=== PATIENT | female | born 1965 | race Caucasian/White ===

== ENCOUNTER → 2016-08-11 | Outpatient (CLI) | payer OTHER | LOC: RAD 08:20 | PROVIDERS: ATTEND Obstetrics & Gynecology | DX: Z12.31 Encounter for screening mammogram for malignant neoplasm of breast (principal) | CPT/HCPCS: 77067 ==

== ENCOUNTER 2017-08-11 12:35 | Day surgery (SDC) | payer OTHER ==
[~2017-08-11] VITALS: Ht 172.7 cm; Wt 86.2 kg
[2017-08-11] MEDS ORDERED: NS IV 1000 ML 3,000 ML ONE (13:10)
[2017-08-11] MEDS ORDERED: NS IV 1000 ML 1,000 ML IV SCH (13:30)
[2017-08-11 13:35] VITALS: BP 157/98
[2017-08-11 13:37] LABS: MEAN PLATELET VOLUME 8.9 FL (7.4-10.4); RED BLOOD COUNT 5.12 10^6/uL (4.35-5.85); RED CELL DISTRIBUTION WIDTH 20.5 % (10.0-14.5); WHITE BLOOD COUNT 8.6 10^3/uL (4.3-11.0)
--- NOTE | 2017-08-11 13:37 | Diagnostic Imaging Report ---
INDICATION: PAD,HTN,TOBACCO,CYANOSIS OF R GREAT TOE COMPARISON: None. FINDINGS: Single frontal view of the chest demonstrates normal heart size and pulmonary vascularity. The lungs are well aerated and clear. No large pleural effusion or pneumothorax is seen. The visualized osseous structures show no acute abnormalities. IMPRESSION: 1. No acute cardiopulmonary process. Dictated by: Dictated on workstation # [id number]
[2017-08-11 13:41] LABS: BILIRUBIN,URINE NEGATIVE (NEGATIVE); CLARITY,URINE CLEAR; COLOR,URINE YELLOW; GLUCOSE, URINE (UA) NEGATIVE (NEGATIVE); KETONES,URINE 1+ (NEGATIVE); LEUKOCYTE ESTERASE ,URINE 1+ (NEGATIVE); NITRITE,URINE NEGATIVE (NEGATIVE); PH,URINE 7 (5-9); PROTEIN,URINE 1+ (NEGATIVE); UROBILINOGEN,URINE NORMAL (NORMAL)
[2017-08-11] MEDS ORDERED: HEParin 1000 UNIT/ML (10ML VIAL) FOR BOLUS ONE (13:47)
[2017-08-11] MEDS ORDERED: LIDOCAINE 1% INJ 20 ML 20 ML VIAL ONE (13:47)
[2017-08-11] MEDS ORDERED: [UNRECOGNIZED DRUG - CODE] MC (13:49)
[2017-08-11] MEDS ORDERED: HYDR25TA4 PO (13:49)
[2017-08-11] MEDS ORDERED: NORE-53 PO (13:49)
[2017-08-11] MEDS ORDERED: AMLO5TAB4 PO (13:49)
[2017-08-11] MEDS ORDERED: OMEP20CA12 PO (13:49)
[2017-08-11] MEDS ORDERED: LORA-714 PO (13:49)
[2017-08-11] MEDS ORDERED: MIDAZOLAM 5 MG/5 ML (VERSED) VIAL ONE (13:51)
[2017-08-11] MEDS ORDERED: fentaNYL INJECTION 100 MCG/2 ML AMP ONE ×2 (13:51→15:10)
[2017-08-11 13:57] LABS: ALANINE AMINOTRANSFERASE 16 U/L (0-55); ALBUMIN 3.9 GM/DL (3.2-4.5); ALKALINE PHOSPHATASE 53 U/L (40-136); BILIRUBIN,TOTAL 0.4 MG/DL (0.1-1.0); BUN/CREATININE RATIO 13; CALCIUM 9.2 MG/DL (8.5-10.1); CARBON DIOXIDE 22 MMOL/L (21-32); CHLORIDE 103 MMOL/L (98-107); CHOLESTEROL 230 MG/DL (< 200); CREATININE SERUM 0.79 MG/DL (0.60-1.30); GFR ESTIMATED > 60; GLUCOSE 88 MG/DL (70-105); HDL CHOLESTEROL 52 MG/DL (40-60); POTASSIUM 3.1 MMOL/L (3.6-5.0); SODIUM 138 MMOL/L (135-145); TRIGLYCERIDES 163 MG/DL (<150); VLDL CHOLESTEROL 33 MG/DL (5-40)
[2017-08-11 13:58] LABS: PROTHROMBIN TIME PATIENT 12.8 SEC (12.2-14.7)
[2017-08-11 14:01] LABS: BACTERIA,URINE NEGATIVE /HPF; RBC,URINE RARE /HPF; SQUAMOUS EPITHELIAL CELL,UR 25-50 /HPF
[2017-08-11] MEDS ORDERED: NITRO DRIP 25000 MCG/D5W 250 ML IV ONE (14:29)
[2017-08-11] MEDS ORDERED: MIDAZOLAM 2 MG/2 ML (VERSED) VIAL ONE (14:37)
[2017-08-11] MEDS ORDERED: PATIENT MAY USE OWN MEDS, ALL PO SCH (15:45)
[2017-08-11] MEDS ORDERED: NITROGLYCERIN 0.4 MG/PATCH (NITRO-DUR) TD ONE (15:45)
--- NOTE | 2017-08-11 15:53 | Cardiac Cath Report ---
Cardiac Cath Report Physician (s)/Bible Reader (s) Physician SONIA AGUSTIN MD Pre-Procedure Diagnosis Pre-Procedure Diagnosis: Peripheral arterial disease Post-Procedure Note Procedure Start Date: August 11, 2017 Name of Procedure: Bilateral lower extremity runoff Balloon angioplasty to the posterior tibial artery Third order Findings/Procedure Note PROCEDURE NOTE: 'bianka is a 51 years old lady with history of tobaccoism, has been having significant pain in her lower extremity on the right side. Significant discomfort. She was scheduled for next week, call the office having significant active pain and cyanosis of her right toe, we decided to proceed with the procedure today. After explaining the procedure to the patient, all pros and cons were explained , all questions were answered. The patient signed the consent and then she was placed on the cardiac catheterization laboratory. The patient was placed on the cardiac catheterization laboratory. Groin was prepped SL fashion local anesthesia was used. Sheath placed in the left femoral artery. Runoff to the left lower extremity was done through the sheath then a pigtail catheter was advanced to the abdominal aorta and abdominal aortogram was done. Stork wire was advanced and exchanged into a straight catheter to the right common iliac artery and runoff to the right lower except he was done then the catheter was advanced to the popliteal artery and to sets of angiogram were done. Total occlusion of the posterior tibial artery was noted. Patient was given 6000 units of heparin and then command 18 was used and advanced to the distal tibial artery then over a mini catheter it was exchanged in 2 command 14, Reading 2.0120 balloon was used multiple inflation, the mini catheter was advanced again and angiogram showed no improvement. I pulled the mini catheter to the tibial peroneal trunk and evaluated the peroneal artery then advanced the command again after looping the wire up in the tibial peroneal trunk and advance it all the way to the foot the balloon was reintroduced again and went down to the foot multiple inflation were done then the wire was removed over a mini and angiogram was done again showing no improvement. At that time I decided to abort the procedure FINDINGS: 1. Abdominal aortogram and evaluation of the bifurcation showed atherosclerotic disease at the bifurcation and origin of the iliac artery none obstructive disease 2. Left lower extremity runoff done through the sheath showing slow flow down to the trifurcation. Below the trifurcation the artery were not well seen 3. Right lower extremity. Patient is symptomatic, total occlusion of the posterior tibial artery, balloon angioplasty at multiple segment as described above without improvement of the flow. The peroneal artery has moderate disease , the anterior tibial artery has mild disease. CONCLUSIONS: 1. Total occlusion of the right posterior tibial artery, balloon angioplasty done at multiple segment without improvement of the flow 2. Mild to moderate disease at the right peroneal and anterior tibial artery. Nonobstructive disease 3. Atherosclerotic disease at the abdominal aorta bifurcation level and the iliac arteries. DISCUSSION AND RECOMMENDATIONS: Patient failed attempt for intervention, maximizing medical therapy is recommended. She has small vessel disease that is not amendable to intervention at this point. Patient is still an active smoker, educated on smoking cessation Anesthesia Type: Conscious Sedation Estimated blood loss (mL): 15 ml Contrast Amount: 129 ml Total Radiation Dose: 189 mGy Post-Procedure Diagnosis Post-operative diagnosis: Claudication Peripheral arterial disease Hypertension Hyperlipidemia Tobaccoism SONIA AGUSTIN MD August 11, 2017 15:53
--- NOTE | 2017-08-11 15:55 | Cardiac Procedure Note-CS/ASA ---
Pre-Procedure Note Pre-Op Procedure Note H&P Reviewed The H&P was reviewed, patient examined and no changes noted. Date H&P Reviewed: August 11, 2017 Time H&P Reviewed: 13:50 Conscious Sedation Pre-Proced Time Reviewed: 13:50 ASA Class: 3 Airway Mallampati Classification: (ione appropriate class) I. II. III, IV Lungs Heart ASA score ASA 1: a normal healthy patient ASA 2: a patient with a mild systemic disease (mid diabetes, controlled hypertension, obesity x ASA 3: a patient with a severe systemic disease that limits activity (angina , COPD, prior Myocardial infarction) ASA 4: a patient with an incapacitating disease that is a constant threat to life (CHF, renal failure) ASA 5: a moribund patient not expected to survive 24 hrs. (ruptured aneurysm) ASA 6: a declared brain patient whose organs are being harvested. For emergent operations, add the letter E after the classification Grade 3 Sedation Plan: Analgesia, Amnesia, Plan communicated to team members, Discussed options with patient/fam, Discussed risks with patient/fam Note The patient is an appropriate candidate to undergo the planned procedure, sedation, and anesthesia. The patient immediately re-assessed prior to indication. SONIA AGUSTIN MD August 11, 2017 15:55
[2017-08-11] MEDS ORDERED: NITROGLYCERIN 2% OINT 1 GM UNIT DOSE PACKET ONE ×2 (15:59→21:05)
[2017-08-11 16:00] VITALS: BP 121/81
[2017-08-11 17:00] VITALS: BP 117/80
[2017-08-11] MEDS ORDERED: NITROGLYCERIN 0.4 MG/PATCH (NITRO-DUR) TD NR (17:30)
[2017-08-11] MEDS: PENTOXIFYLLINE 400 MG (TRENtal) TAB PO SCH (17:46)
[2017-08-11] MEDS: OMEGA 3 (FISH OIL) 1000 MG CAP PO SCH (17:46)
[2017-08-11] MEDS: NS IV 1000 ML 1,000 ML IV SCH (17:47)
[2017-08-11 18:00] VITALS: BP 122/85
[2017-08-11] MEDS ORDERED: ACETAMINOPHEN 500 MG TAB (TYLENOL) ONE (19:58)
[2017-08-11 20:00] VITALS: BP 134/81
[2017-08-11] MEDS: ACETAMINOPHEN 500 MG TAB (TYLENOL) PO PRN (20:08)
[2017-08-11] MEDS ORDERED: ATORVASTATIN 10 MG (LIPITOR) TABLET PO SCH (21:00)
[2017-08-11] MEDS ORDERED: ASPIRIN 325 MG (5 GR) TABLET ONE (21:03)
[2017-08-11] MEDS ORDERED: CLOPIDOGREL 300 MG (PLAVIX) TABLET PO ONE ×2 (21:05→21:15)
[2017-08-11] MEDS: NITROGLYCERIN 2% OINT 1 GM UNIT DOSE PACKET TOP SCH (21:11)
[2017-08-11] MEDS ORDERED: ASPIRIN 325 MG (5 GR) TABLET PO ONE (21:15)
[2017-08-12] VITALS: BP 121/71
[2017-08-12] MEDS: NS IV 1000 ML 1,000 ML IV SCH (01:57)
[2017-08-12] MEDS: ACETAMINOPHEN 500 MG TAB (TYLENOL) PO PRN (03:17)
[2017-08-12] MEDS: NITROGLYCERIN 2% OINT 1 GM UNIT DOSE PACKET TOP SCH (03:17)
[2017-08-12 04:00] VITALS: BP 107/72
[2017-08-12 04:40] LABS: HEMOGLOBIN 9.8 G/DL (11.5-16.0); MEAN PLATELET VOLUME 9.5 FL (7.4-10.4); RED BLOOD COUNT 4.55 10^6/uL (4.35-5.85); RED CELL DISTRIBUTION WIDTH 19.6 % (10.0-14.5); WHITE BLOOD COUNT 8.7 10^3/uL (4.3-11.0)
[2017-08-12 04:53] LABS: BUN/CREATININE RATIO 17; CALCIUM 8.7 MG/DL (8.5-10.1); CARBON DIOXIDE 20 MMOL/L (21-32); CHLORIDE 107 MMOL/L (98-107); CREATININE SERUM 0.78 MG/DL (0.60-1.30); GFR ESTIMATED > 60; GLUCOSE 88 MG/DL (70-105); POTASSIUM 3.3 MMOL/L (3.6-5.0); SODIUM 138 MMOL/L (135-145)
[2017-08-12] MEDS: PENTOXIFYLLINE 400 MG (TRENtal) TAB PO SCH (06:09)
[2017-08-12] MEDS: OMEGA 3 (FISH OIL) 1000 MG CAP PO SCH (06:09)
[2017-08-12] MEDS ORDERED: PANTOPRAZOLE 20 MG TABLET (PROTONIX) PO SCH (07:00)
--- NOTE | 2017-08-12 07:24 | Cardiology Progress Note ---
Subjective Date Seen by Provider: August 12, 2017 Time Seen by Provider: 07:21 Subjective/Events-last exam Patient reported some improvement in her symptoms, her foot still felt colder and had difficulty getting it warm but the pain is better. The color is slightly better. No active pain. Review of Systems General: No Chills, No Night Sweats, No Fatigue, No Malaise, No Appetite, No Other HEENT: No Head Aches, No Visual Changes, No Eye Pain, No Ear Pain, No Dysphasia , No Sinus Congestion, No Post Nasal Drip, No Sore Throat, No Other Pulmonary: No Dyspnea, No Cough, No Pleuritic Chest Pain, No Other Cardiovascular: No: Chest Pain, Palpitations, Orthopnea, Paroxysmal Noc. Dyspnea, Edema, Lt Headedness, Other Gastrointestinal: No: Nausea, Vomiting, Abdominal Pain, Diarrhea, Constipation , Melena, Hematochezia, Other Objective-Cardiology Exam Last Set of Vital Signs Vital Signs 08/12/17 04:00 Temp 97.7 Pulse 74 Resp 17 B/P (MAP) 107/72 (84) Pulse Ox 96 O2 Delivery Room Air Capillary Refill : Less Than 3 Seconds I&O Intake and Output 08/12/17 00:00 Intake Total 600 ml Balance 600 ml Intake Oral 600 ml # Voids 1 General: Alert, Oriented X3, Cooperative HEENT: Atraumatic, PERRLA Neck: Supple, No JVD, No Thyromegaly Lungs: Clear to Auscultation, Normal Air Movement Heart: Regular Rate, Normal S1, Normal S2, No Murmurs Abdomen: Normal Bowel Sounds, Soft, No Tenderness, No Hepatosplenomegaly, No Masses Extremities: No Clubbing, No Cyanosis, No Edema, No Tenderness/Swelling, Other (Diminished pulse) Skin: No Rashes, No Breakdown, No Significant Lesion Neuro: Normal Gait, Normal Speech, Strength at 5/5 X4 Ext, Normal Tone, Sensation Intact Psych/Mental Status: Mental Status NL, Mood NL Results Lab Laboratory Tests 08/11/17 13:29 08/12/17 03:50 A/P-Cardiology Admission Diagnosis Claudication Peripheral arterial disease Hyperlipidemia Tobaccoism Assessment/Plan Claudication, significant pain, small vessel disease at the foot on the right lower extremity, total occlusion of the posterior tibial artery distally small artery, attempt for balloon angioplasty without success. We will continue to maximize medical therapy, educated on smoking cessation. Consideration for pedal access or attempt to improve the flow at the anterior tibial artery. I will discharge home today and monitor as an outpatient 1. Total occlusion of the right posterior tibial artery, balloon angioplasty done at multiple segment without improvement of the flow 2. Mild to moderate disease at the right peroneal and anterior tibial artery. Nonobstructive disease 3. Atherosclerotic disease at the abdominal aorta bifurcation level and the iliac arteries. Hyperlipidemia, started on statin, monitor lipids Tobaccoism, educated and instructed on smoking cessation, had a long discussion about the importance of smoking cessation. SONIA AGUSTIN MD August 12, 2017 07:24
[2017-08-12] MEDS ORDERED: CLOP75TA28 PO (07:27)
[2017-08-12] MEDS ORDERED: NITR1PAT5 TD (07:27)
[2017-08-12] MEDS ORDERED: PENT400T9 PO (07:27)
[2017-08-12] MEDS ORDERED: OMG1KC PO (07:27)
[2017-08-12] MEDS ORDERED: ASPI-983 PO (07:27)
[2017-08-12] MEDS ORDERED: ATOR10TA66 PO (07:27)
--- NOTE | 2017-08-12 07:28 | Discharge Inst-Post CATH ---
Discharge Inst-CATH Post Cardiac Cath D/C Inst Follow Up/Plan Appointment with Dr. Paz's office in 2-4 weeks CARDIAC CATH DISCHARGE INSTRUCTIONS *Hold Metformin for 48 hours post heart cath. ACTIVITY * Go Home directly and rest. * Limit activity of the leg (or wrist if it was used) for 7 days including aerobics, swimming, jogging, bicycling, etc. * Restrict stair-climbing for 7 days if possible, if not, climb up with your non -cath leg, then bring together on the same step. * Avoid lifting, pushing, pulling or excessive movement of the affected extremity for 7 days. * Customary sexual activity may be resumed after 2 days-use caution not to use a position that strains or causes pain to the affected extremity. * No driving for 24 hours. * NO SMOKING. * Avoid straining for bowel movements for 7 days. * Gentle walking on level ground is allowed. * Returning to work will depend on the type of procedure and the results. Your doctor will discuss this with you. CALL YOUR DOCTOR FOR ANY OF THE FOLLOWING: *If bleeding from the puncture site occurs- Apply gentle pressure to site with clean cloth and call your doctor or EMS. * If a knot or lump forms under the skin, increases in size, or causes pain. * If bruising appears to be worsening or moving further down your leg instead of disappearing. * Temperature above 101 F. CARE OF YOUR GROIN INCISION; * Bruising or purple discoloration of the skin near the puncture site is common. * You may shower only, no bathtub bathing for 5 days. Be careful to avoid slipping as your leg may feel stiff. * If a closure device was used on your femoral artery, please see the attached guide regarding care of the device and your leg. * REMOVE the dressing from your groin the next day after your procedure in the shower. CARE OF YOUR WRIST INCISION; * Bruising or purple discoloration of the skin near the puncture site is common. * You may shower. * DO NOT submerge wrist. * Remove dressing in 24 hours. SONIA PAZ MD August 12, 2017 07:28
[2017-08-12 08:01] VITALS: BP 132/94
[2017-08-12] MEDS ORDERED: OMEPRAZOLE 20 MG (PriLOSEC) CAP NON-FORMULARY PO SCH (09:00)
[2017-08-12] MEDS ORDERED: amLODIPine 5 MG (NORVASC) TAB PO SCH (09:00)
[2017-08-12] MEDS ORDERED: ASPIRIN E.C. 81 MG (ECOTRIN) TAB PO SCH (09:00)
[2017-08-12] MEDS ORDERED: NON-FORMULARY MEDICATION 1 EA EA (Amlodipine Besylate (Norvasc) 5 MG) PO SCH (09:00)
[2017-08-12] MEDS ORDERED: CLOPIDOGREL 75 MG (PLAVIX) TABLET PO SCH (09:00)
== END 2017-08-12 08:36 | disposition home or self-care (01) ==
LOC: CATH 12:35 → ICU 16:55 → CATH 08-12 08:36
PROVIDERS: ATTEND Internal Medicine Cardiovascular Disease
DX: I70.211 Atherosclerosis of native arteries of extremities with intermittent claudication, right leg (principal); I70.92 Chronic total occlusion of artery of the extremities; I70.0 Atherosclerosis of aorta; I73.00 Raynaud's syndrome without gangrene; I10 Essential (primary) hypertension; E78.5 Hyperlipidemia, unspecified; D64.9 Anemia, unspecified; F17.210 Nicotine dependence, cigarettes, uncomplicated; Z79.899 Other long term (current) drug therapy
CPT/HCPCS: 36140; 36415; 71045; 80048; 80053; 80061; 81000; 85027; 85610; 85730; 87081

== ENCOUNTER → 2017-09-02 | Outpatient (CLI) | payer OTHER ==
[~2017-09-02] MED LIST: AMLO5TAB4 PO; ASPI-983 PO; ATOR10TA66 PO; CLOP75TA28 PO; HYDR25TA4 PO; LORA-714 PO; NITR1PAT5 TD; NORE-53 PO; OMEP20CA12 PO; OMG1KC PO; PENT400T9 PO; [UNRECOGNIZED DRUG - CODE] MC
--- NOTE | 2017-09-03 14:02 | Diagnostic Imaging Report ---
EXAM: Digital mammogram bilateral screening with 3D tomosynthesis. The current study was also evaluated with a Computer Aided Detection (CAD) system. COMPARISON: This study was compared to the prior exam of study of 08/11/2016 and 02/22/2015. Currently, there are no complaints. FINDINGS: There are scattered fibroglandular densities in both breasts which could obscure a Lesion. Overall, there does not appear to have been any significant change when compared to the prior exam. No primary or secondary sign of malignancy is noted. IMPRESSION: There is no radiographic evidence for malignancy. ACR BI-RADS Category 1: Negative. Result letter will be mailed to the patient. Note: At least 10% of breast cancer is not imaged by mammography. Dictated by: Dictated on workstation # [id number]
== END ==
LOC: RAD 15:25
PROVIDERS: ATTEND Obstetrics & Gynecology
DX: Z12.31 Encounter for screening mammogram for malignant neoplasm of breast (principal)
CPT/HCPCS: 77067

== ENCOUNTER → 2018-06-23 | Outpatient (CLI) | payer OTHER ==
[~2018-06-23] MED LIST changes: +SUMA100P MC; -[UNRECOGNIZED DRUG - CODE] MC
== END ==
LOC: CARD 09:47
PROVIDERS: ATTEND Internal Medicine Cardiovascular Disease
DX: I10 Essential (primary) hypertension (principal); I73.00 Raynaud's syndrome without gangrene; Z72.0 Tobacco use
CPT/HCPCS: 93306

== ENCOUNTER → 2018-10-06 | Outpatient (CLI) | payer OTHER ==
--- NOTE | 2018-10-06 09:58 | Diagnostic Imaging Report ---
INDICATION: Routine screening. COMPARISON: 09/02/2017 and 08/11/2016. TECHNIQUE: 2D and 3D bilateral screening mammography was performed with CAD. FINDINGS: Scattered fibroglandular densities are identified bilaterally. The parenchymal pattern is stable. No mass or malignant appearing microcalcifications are seen. The axillae are unremarkable. IMPRESSION: No mammographic features suspicious for malignancy are identified. ACR BI-RADS Category 1: Negative. Result letter will be mailed to the patient. Note: At least 10% of breast cancer is not imaged by mammography. Dictated by: Dictated on workstation # [id number]
== END ==
LOC: RAD 07:22
PROVIDERS: ATTEND Obstetrics & Gynecology
DX: Z12.31 Encounter for screening mammogram for malignant neoplasm of breast (principal)
CPT/HCPCS: 77067

== ENCOUNTER → 2019-01-30 | Outpatient (CLI) | payer OTHER ==
[~2019-01-30] MED LIST changes: -OMEP20CA12 PO; +OMEP20CA13 PO; -PENT400T9 PO; +PNT400TCR PO
[2019-01-30 07:17] LABS: ALANINE AMINOTRANSFERASE 16 U/L (0-55); ALBUMIN 3.9 GM/DL (3.2-4.5); ALKALINE PHOSPHATASE 62 U/L (40-136); BILIRUBIN,TOTAL 0.3 MG/DL (0.1-1.0); BUN/CREATININE RATIO 11; CALCIUM 9.1 MG/DL (8.5-10.1); CARBON DIOXIDE 22 MMOL/L (21-32); CHLORIDE 107 MMOL/L (98-107); CHOLESTEROL 175 MG/DL (< 200); CREATININE SERUM 0.84 MG/DL (0.60-1.30); GFR ESTIMATED > 60; GLUCOSE 96 MG/DL (70-105); HDL CHOLESTEROL 41 MG/DL (40-60); POTASSIUM 3.6 MMOL/L (3.6-5.0); SODIUM 141 MMOL/L (135-145); TOTAL PROTEIN 6.6 GM/DL (6.4-8.2); TRIGLYCERIDES 143 MG/DL (<150); VLDL CHOLESTEROL 29 MG/DL (5-40)
== END ==
LOC: LAB 06:50
PROVIDERS: ATTEND Internal Medicine Cardiovascular Disease
DX: I73.00 Raynaud's syndrome without gangrene (principal); I10 Essential (primary) hypertension; Z72.0 Tobacco use
CPT/HCPCS: 36415; 80053; 80061

== ENCOUNTER → 2020-05-09 | Outpatient (CLI) | payer OTHER ==
[~2020-05-09] MED LIST changes: +ASPI-1238 PO; -ASPI-983 PO; +LORA-53 PO; -LORA-714 PO; -NITR1PAT5 TD; +NITR1PAT81 TD; -OMEP20CA13 PO; +OMEP20CA18 PO
[2020-05-09 08:04] LABS: ALANINE AMINOTRANSFERASE 9 U/L (0-55); ALBUMIN 3.9 GM/DL (3.2-4.5); ALKALINE PHOSPHATASE 72 U/L (40-136); BILIRUBIN,TOTAL 0.2 MG/DL (0.1-1.0); BUN/CREATININE RATIO 10; CALCIUM 9.3 MG/DL (8.5-10.1); CARBON DIOXIDE 23 MMOL/L (21-32); CHLORIDE 106 MMOL/L (98-107); CHOLESTEROL 169 MG/DL (< 200); CREATININE SERUM 0.82 MG/DL (0.60-1.30); GFR ESTIMATED > 60; GLUCOSE 93 MG/DL (70-105); HDL CHOLESTEROL 41 MG/DL (40-60); POTASSIUM 3.5 MMOL/L (3.6-5.0); SODIUM 140 MMOL/L (135-145); TOTAL PROTEIN 6.5 GM/DL (6.4-8.2); TRIGLYCERIDES 134 MG/DL (<150); VLDL CHOLESTEROL 27 MG/DL (5-40)
== END ==
LOC: LAB 07:21
PROVIDERS: ATTEND Physician Assistant
DX: E78.2 Mixed hyperlipidemia (principal); Z20.822 Contact with and (suspected) exposure to COVID-19
CPT/HCPCS: 36415; 80053; 80061; 86769

== ENCOUNTER → 2021-01-31 | Outpatient (CLI) | payer OTHER ==
[2021-01-31 08:12] LABS: ALBUMIN 4.1 GM/DL (3.2-4.5); BILIRUBIN,TOTAL 0.3 MG/DL (0.1-1.0); CALCIUM 9.2 MG/DL (8.5-10.1); CREATININE SERUM 0.82 MG/DL (0.60-1.30); POTASSIUM 4.1 MMOL/L (3.6-5.0); TOTAL PROTEIN 6.9 GM/DL (6.4-8.2)
== END ==
LOC: LAB
PROVIDERS: ATTEND Physician Assistant
DX: E78.2 Mixed hyperlipidemia (principal)
CPT/HCPCS: 36415; 80053; 80061

== ENCOUNTER 2022-04-24 09:35 | Outpatient (CLI) | payer OTHER ==
[~2022-04-24] VITALS: Ht 172.7 cm; Wt 87.1 kg
[~2022-04-24 09:35] MED LIST changes: +LORA-1389 PO; -LORA-53 PO
[2022-04-24] MEDS ORDERED: LISI5TAB20 PO (14:29)
== END 2022-04-24 14:31 | disposition home or self-care (01) ==
LOC: PREOP 09:35
PROVIDERS: ATTEND Surgery
DX: Z01.818 Encounter for other preprocedural examination (principal)

== ENCOUNTER 2022-04-29 06:42 | Day surgery (SDC) | payer BC, OTHER ==
[~2022-04-29] VITALS: Ht 172.7 cm; Wt 87.1 kg
[~2022-04-29 06:42] MED LIST changes: +LISI5TAB20 PO
[2022-04-29] MEDS ORDERED: LACTATED RINGERS 1,000 ML IV STA (07:05)
[2022-04-29 07:10] VITALS: BP 131/81
[2022-04-29] MEDS ORDERED: HURRICAINE EXT TUBE (BENZOCAINE) XX PRN (07:15)
[2022-04-29] MEDS ORDERED: PROPOFOL INJECTION 50 ML IV ONE (07:51)
--- NOTE | 2022-04-29 08:21 | Progress Note-Pre Operative ---
Pre-Operative Progress Note Date of Available H&P: Apr 22, 2022 Date H&P Reviewed: Apr 29, 2022 Time H&P Reviewed: 08:12 History & Physical: H&P Reviewed, Patient Examed, No changes noted Pre-Operative Diagnosis: iron def anemia HAMILTON DOLAN DO Apr 29, 2022 08:21
--- NOTE | 2022-04-29 08:56 | Discharge Inst-Simple/Standard ---
Discharge Inst-Standard Patient Instructions/Follow Up Plan of Care/Instructions/FU: 2 weeks Vijaya Activity as Tolerated: Yes Discharge Diet: Regular Diet HAMILTON DOLAN DO Apr 29, 2022 08:56
[2022-04-29 08:58] VITALS: BP 106/58
[2022-04-29 09:05] VITALS: BP 106/58
--- NOTE | 2022-04-29 09:09 | Anesthesia-General Post-Op ---
MAC Patient Condition Mental Status/LOC: Same as Preop Cardiovascular: Satisfactory Nausea/Vomiting: Absent Respiratory: Satisfactory Pain: Controlled Complications: Absent Post Op Complications Complications None Follow Up Care/Instructions Patient Instructions None needed. Anesthesiology Discharge Order Discharge Order Patient is doing well, no complaints, stable vital signs, no apparent adverse anesthesia problems. No complications reported per nursing. BETZAIDA JONES CRNA Apr 29, 2022 09:09
[2022-04-29 09:22] VITALS: BP 106/58
--- NOTE | 2022-04-29 14:42 | OPERATIVE REPORT ---
DATE OF SERVICE: 04/29/2022 PREOPERATIVE DIAGNOSIS: Iron deficiency anemia. POSTOPERATIVE DIAGNOSES: Small hiatal hernia, rectal polyp, diverticulosis, minimal. PROCEDURE: EGD with biopsies, colonoscopy with hot biopsy polypectomy x1. SURGEON: Hamilton Lilly DO ANESTHESIA: Per BLOOD COLLECTOR. ESTIMATED BLOOD LOSS: None. COMPLICATIONS: None. INDICATIONS: The patient is a 56-year-old female with iron deficiency anemia. She understands risks and benefits of procedure and wishes to proceed. Consent was signed and in chart. DESCRIPTION OF PROCEDURE: The patient was taken to the endoscopy suite, placed in left lateral recumbent position. Timeout was performed. Scope was inserted in mouth, down the esophagus, stomach and into the duodenum without difficulty. No polyps, masses, ulcerations in the duodenum. Scope was retracted back to the stomach where it was further insufflated. No polyps, masses or ulcerations. Biopsy of the antrum was obtained. Scope was retroflexed noting no other pathology except for small hiatal hernia. Scope was returned to its normal position, slowly withdrawn to the distal esophagus, biopsy of the GE junction was obtained. No polyps, masses or ulcerations. Scope was slowly retracted until completely removed noting no other pathology. Digital rectal exam was performed noting a small rectal polyp and some internal hemorrhoids, no masses or ulcerations. Scope was inserted into the rectum and advanced all the way to the cecum with minimal difficulty. Prep was adequate. Scope was then slowly retracted back. No polyps, masses or ulcerations in the cecum, ascending, transverse, descending and sigmoid colon. Minimal amount of diverticulosis present in the sigmoid colon. Once in the rectum, scope was retroflexed noting a small rectal polyp and internal hemorrhoids. Hot biopsy polypectomy of the polyp was performed. Scope was returned to its normal position, slowly withdrawn until completely removed. The patient tolerated the procedure well without any complications, taken to recovery in stable condition. RECOMMENDATIONS: The patient continues to be having iron deficiency anemia. Would recommend a capsule endoscopy, which will need to be set up with GI. The patient will follow up on pathology in 2 weeks. Recommend high fiber diet due to diverticulosis. We will again repeat colonoscopy in 5 years unless any issues before that and should be reevaluated at that time due to the polyp. Job ID: [id number] DocumentID: [id number] Dictated Date: 04/29/2022 08:59:20 Roller Inspector And Mender Date: 04/29/2022 14:39:00 Dictated By: HAMILTON LILLY DO
== END 2022-04-29 09:26 | disposition home or self-care (01) ==
LOC: ENDO 06:42
PROVIDERS: ATTEND Surgery
DX: K62.1 Rectal polyp (principal); K44.9 Diaphragmatic hernia without obstruction or gangrene; K57.30 Diverticulosis of large intestine without perforation or abscess without bleeding; K64.8 Other hemorrhoids; D50.9 Iron deficiency anemia, unspecified; I48.91 Unspecified atrial fibrillation; E66.9 Obesity, unspecified; Z68.29 Body mass index [BMI] 29.0-29.9, adult; Z87.891 Personal history of nicotine dependence
CPT/HCPCS: 88305